=== PATIENT | male | born 1995 | race African-American/Black ===

== ENCOUNTER → 2020-06-07 12:29 | Outpatient (CLI) | payer OTHER, SELFPAY ==
--- NOTE | ~2020-06-07 | XR_ITS ---
EXAMINATION: XR UGIAC wo [facility] DATE: 06/07/2020 13:27 INDICATION: Epigastric pain TECHNIQUE: Thick barium contrast with gas effervescent crystals were administered orally. Fluoroscop ic images of the esophagus, stomach, and proximal duodenum were obtained in various projections. The reafter, overhead images of the abdomen were performed. 1.8 minutes minutes of fluroscopy. DAP for 2. 1. FINDINGS: No prior studies for comparison. The esophagus is normal in caliber, without mucosal lesions or strictures. There is normal esophagea l peristalsis. There is a small hiatal hernia. Gastroesophageal reflux witnessed during the course o f the study. The gastric folds are normal. The proximal duodenum is also normal in appearance. IMPRESSION: 1. Small sliding hiatal hernia with gastroesophageal reflux. Reviewed, dictated and finalized at location B.
== END ==
PROVIDERS: PCP Physician Assistant; Visit Provider Physician Assistant
DX: R10.13 Epigastric pain (principal); K44.9 Diaphragmatic hernia without obstruction or gangrene; K21.9 Gastro-esophageal reflux disease without esophagitis
CPT/HCPCS: 74246